=== PATIENT | male | born 1970 | race Caucasian/White ===

== ENCOUNTER 2017-03-03 18:25 | Emergency (ER) | payer BC ==
[2017-03-03 18:31] VITALS: TEMP 97.7
[2017-03-03] MEDS ORDERED: PROPARACAINE 0.5% 15 ML OPHT DROP OP ONE (19:11)
[2017-03-03] MEDS ORDERED: FLUORESCEIN SODIUM 1 MG STRIP OP ONE (19:12)
[2017-03-03] MEDS ORDERED: PROPARACAINE 0.5% 15 ML OPHT DROP ONE (19:14)
--- NOTE | 2017-03-03 19:17 | EDPHY ---
H & P Stated Complaint: L INNER EYE SCRAPED WITH BAMBOO STAKE Time Seen by Provider: 03/03/17 18:34 HPI/ROS: CHIEF COMPLAINT: Left eye injury HISTORY OF PRESENT ILLNESS: The patient presents to the ED with complaints of left eye pain after he inadvertently bent over and was poked in the left eye by a bamboo stick. The patient initially had some blurry vision and eye pain following the incident. He reports that his blurry vision has improved and essentially resolved. The patient denies any diplopia or additional acute complaints. REVIEW OF SYSTEMS: A comprehensive 10 point review of systems is otherwise negative aside from elements mentioned in the history of present illness. Source: Patient Exam Limitations: No limitations - Personal History Current Tetanus/Diphtheria Vaccine: No - Medical/Surgical History Hx Asthma: No Hx Chronic Respiratory Disease: No Hx Diabetes: No Hx Cardiac Disease: No Hx Renal Disease: No Hx Cirrhosis: No Hx Alcoholism: No Hx HIV/AIDS: No Hx Splenectomy or Spleen Trauma: No Other PMH: DENIES - Social History Smoking Status: Never smoked - Physical Exam Exam: Visual Acuity: noted from Nurse's notes. Pupils: equal round and reactive to light EOMI Skin: no proptosis, no periorbital erythema or swelling Conjunctivae: Medial subconjunctival hemorrhage noted in the left eye, patient does have some fine particulate imbedded into the conjunctiva of the medial aspect of the left eye, there is a superficial degloving type injury to the conjunctival tissues on the left eye Cornea: exam with fluorescein shows no corneal abrasion Anterior chamber: normal, no hyphema or hypopyon Constitutional: Initial Vital Signs Temperature (C) 36.5 C 03/03/17 18:27 Heart Rate 61 03/03/17 18:27 Respiratory Rate 18 03/03/17 18:27 Blood Pressure 143/93 H 03/03/17 18:27 O2 Sat (%) 99 03/03/17 18:27 O2 Delivery Mode Room Air Allergies/Adverse Reactions: No Known Allergies Allergy (Unverified 03/03/17 18:27) Home Medications: Medication Instructions Recorded Albuterol 03/03/17 NK [No Known Home Meds] 03/03/17 Singulair 03/03/17 Medical Decision Making ED Course/Re-evaluation: Patient presents to the ED with left eye conjunctival injury. The patient has a subconjunctival hemorrhage, some conjunctival edema and a superficial degloving type injury. It is nonsuturable. The patient declined a CT scan for evaluation of possible globe injury. I did curbside Dr. Edgar Vasquez who is on-call with Ophthalmology. The patient's conjunctiva will be copiously irrigated. The patient will be started on erythromycin ointment. He will be seen tomorrow by Dr. Edgar Vasquez office for a follow-up visit. Differential Diagnosis: Differential diagnosis considered includes subconjunctival hemorrhage, corneal laceration, corneal abrasion, globe injury Departure - Departure Disposition: Home, Routine, Self-Care Clinical Impression: Subconjunctival hemorrhage Condition: Good Instructions: Subconjunctival Hemorrhage (ED) Additional Instructions: 1. Apply antibiotic ointment to left eye twice daily for next week. 2. Please contact Dr. Edgar Vasquez tomorrow to schedule a follow-up visit. 3. Please return to the ED for severe pain or other concerns. Referrals: Edgar Vasquez MD [Medical Doctor] - As per Instructions
[2017-03-03] MEDS ORDERED: ERYTHROMYCIN 0.5% 1 GM OPHT.OINT EACHEYE ONE (20:17)
[2017-03-03 20:45] VITALS: BP 152/91; PULSE 60; RESP 14; O2SAT 96
== END 2017-03-03 20:43 | disposition home or self-care (01) ==
DX: H11.32 Conjunctival hemorrhage, left eye (principal); W22.8XXA Striking against or struck by other objects, initial encounter

== ENCOUNTER → 2017-04-20 | Outpatient (CLI) | payer BC | LOC: BMCIMAGING 11:17 | PROVIDERS: ATTEND Family Medicine | DX: S99.922A Unspecified injury of left foot, initial encounter (principal); M15.4 Erosive (osteo)arthritis ==